=== PATIENT | male | born 1970 | race Caucasian/White ===

== ENCOUNTER 2020-11-02 07:12 | Emergency (ER) | payer OTHER ==
[2020-11-02 07:28] VITALS: BP 158/100; PULSE 83; TEMP 97.6; BMI 32.1
[2020-11-02] MEDS ORDERED: LIDOCAINE HCL 2% JELLY (30 ML/TUBE) TP ONE (07:51)
[2020-11-02] MEDS ORDERED: LIDOCAINE HCL 2% JELLY (5 ML/TUBE) ONE (08:00)
== END 2020-11-02 08:20 | disposition home or self-care (01) ==
LOC: FER 07:12
DX: K64.3 Fourth degree hemorrhoids (principal)
CPT/HCPCS: 99283-25